=== PATIENT | male | born 1975 | race Asian ===

== ENCOUNTER 2022-07-29 13:51 | Emergency (ER) | payer MEDICAID ==
[~2022-07-29] VITALS: Ht 152.4 cm; Wt 77.2 kg
[2022-07-29 13:55] VITALS: BP 168/88
[2022-07-29] MEDS ORDERED: ondansetron 4mg rapidly disintigrating tab PO ONE (14:25)
[2022-07-29] MEDS ORDERED: meclizine 12.5mg tablet PO ONE (14:25)
[2022-07-29] MEDS ORDERED: proCHLORperazine 10 MG/2 ml inj IM ONE (15:05)
[2022-07-29] MEDS ORDERED: ONDA8TAB13 PO (15:53)
[2022-07-29] MEDS ORDERED: MECL-159 PO (15:53)
== END 2022-07-29 16:19 | disposition home or self-care (01) ==
LOC: ER 13:52
DX: H81.10 Benign paroxysmal vertigo, unspecified ear (principal); Z79.899 Other long term (current) drug therapy
CPT/HCPCS: 96372; 99283; J0780; J8597